=== PATIENT | male | born 1960 | race Caucasian/White ===

== ENCOUNTER → 2020-05-19 | Outpatient (CLI) | payer BC, OTHER ==
[~2020-05-19] MED LIST: FLEXERIL 10 MG10 MG PO; NITROSTAT0.4 MG SL; NORCO 5-325 TA1 EACH PO; OMEPRAZOLE MAGN20 MG PO; ONDANSETRON ODT4 MG SL; Voltaren Gel 1 % TOP
== END ==
LOC: KOH-I 12:37
DX: M25.512 Pain in left shoulder (principal)
CPT/HCPCS: 73030

== ENCOUNTER → 2020-06-01 | Outpatient (CLI) | payer OTHER | LOC: EMI 10:25 | DX: M25.512 Pain in left shoulder (principal); M75.102 Unspecified rotator cuff tear or rupture of left shoulder, not specified as traumatic; M19.012 Primary osteoarthritis, left shoulder | CPT/HCPCS: 73221 ==

== ENCOUNTER → 2020-06-19 | Outpatient (CLI) | payer BC, OTHER | LOC: EMI 08:15 | DX: M54.2 Cervicalgia (principal) | CPT/HCPCS: 72141 ==

== ENCOUNTER → 2020-07-13 | Outpatient (CLI) | payer BC, OTHER | LOC: KOH-I 15:00 | DX: M79.671 Pain in right foot (principal); R60.0 Localized edema | CPT/HCPCS: 73718 ==

== ENCOUNTER → 2020-11-16 | Outpatient (CLI) | payer BC | LOC: EMI 08:07 | DX: G44.52 New daily persistent headache (NDPH) (principal) | CPT/HCPCS: 70551 ==

== ENCOUNTER → 2020-12-05 | Outpatient (CLI) | payer BC | LOC: ECHO 08:28 → HEART 5 09:30 | DX: I25.2 Old myocardial infarction (principal); R07.9 Chest pain, unspecified | CPT/HCPCS: ECHO; 93306 ==

== ENCOUNTER → 2020-12-14 | Outpatient (CLI) | payer BC | LOC: HEART 5 12-05 14:30 | DX: R07.9 Chest pain, unspecified (principal); I25.2 Old myocardial infarction; R94.31 Abnormal electrocardiogram [ECG] [EKG]; I49.1 Atrial premature depolarization | CPT/HCPCS: 78452; A9502; J2785 ==

== ENCOUNTER → 2021-02-07 | Outpatient (CLI) | payer BC ==
[~2021-02-07] MED LIST changes: +ADVIL200 M1 PO; +ALEVE220 M1 PO; +HYDROCODONE-AC1 EAC1 PO; +IBU800 MG PO
== END ==
LOC: KOH-I 02-02 13:30
DX: Z01.818 Encounter for other preprocedural examination (principal); I73.9 Peripheral vascular disease, unspecified
CPT/HCPCS: 93926

== ENCOUNTER → 2021-02-09 | Day surgery (SDC) | payer BC ==
[~2021-02-09] VITALS: Ht 182.9 cm; Wt 97.5 kg
== END | disposition home or self-care (01) ==
LOC: OR 05:59
DX: M72.2 Plantar fascial fibromatosis (principal); M77.31 Calcaneal spur, right foot; Z86.16 Personal history of COVID-19; Z85.038 Personal history of other malignant neoplasm of large intestine
CPT/HCPCS: 73650; 76000; J0690; J1100; J1170; J1885; J2250; J2405; J2704; J2795; J3010; J3370; J7120; Q4133